=== PATIENT | male | born 1970 | race Caucasian/White ===

== ENCOUNTER → 2020-01-30 | Outpatient (CLI) | payer BC ==
[~2020-01-30] MED LIST: AMOXICILLIN500 MG PO; CLARITIN10 MG PO; MOTRIN800 MG PO; VICODIN ES 7501 TAB PO
== END | disposition home or self-care (01) ==
LOC: COVID19 11:54
PROVIDERS: ATTEND Family Medicine
DX: Z20.828 Contact with and (suspected) exposure to other viral communicable diseases (principal)

== ENCOUNTER → 2020-02-18 | Outpatient (CLI) | payer BC | END | disposition home or self-care (01) | LOC: COVID19 10:47 | PROVIDERS: ATTEND Family Medicine | DX: U07.1 COVID-19 (principal) ==

== ENCOUNTER 2024-09-02 19:27 | Emergency (ER) | payer OTHER ==
[~2024-09-02] VITALS: Ht 195.5 cm; Wt 131.5 kg
[2024-09-02 19:43] VITALS: BP 134/86
[2024-09-02] MEDS ORDERED: Tdap Vaccine 0.5 ML SYR (Adult Vaccine) IM ONE (20:00)
[2024-09-02] MEDS ORDERED: Acetaminophen/Hydrocodone HP 10/325 PO ONE (20:00)
[2024-09-02] MEDS ORDERED: CEPHALEXIN 500 MG CAP PO ONE (20:40)
[2024-09-02] MEDS ORDERED: CEPHALEXIN500 M1 PO (20:40)
[2024-09-02] MEDS ORDERED: Bacitracin Zinc 14 GM TUBE T ONE (20:45)
== END 2024-09-02 21:04 | disposition home or self-care (01) ==
LOC: ED 19:27
DX: S61.022A Laceration with foreign body of left thumb without damage to nail, initial encounter (principal); Z79.899 Other long term (current) drug therapy; Z90.49 Acquired absence of other specified parts of digestive tract; X58.XXXA Exposure to other specified factors, initial encounter; Y93.89 Activity, other specified; Y92.89 Other specified places as the place of occurrence of the external cause; Y99.8 Other external cause status